=== PATIENT | female | born 1980 | race Caucasian/White ===

== ENCOUNTER → 2017-03-17 | Outpatient (CLI) | payer OTHER ==
--- NOTE | ~2017-03-17 | MR32 ---
[facility] A Service of [facility] & [facility] RADIOLOGY TEXT RESULTS PATIENT: EMRE LEUNG LOCATION: [facility] : [birth year] UNIT #: [id number] AGE: [address]: ANGELICA SUMMERS APRN SEX: F ORDER DR: [id number] [place] [id number] O MR#: [id number] Acc #: [id number] NAME: EMRE LEUNG : 1980 SEX: F STUDY DATE/TIME: 03/17/2017 11:34 UNIT: [facility] ROOM: STUDY DESCRIPTION: MR Cervical Wo Contrast Attending Physician: Angelica Summers Aprn Referring Physician: Angelica Summers Aprn Ordering Physician: Angelica Summers Aprn Primary Care Physician: Kelli Weeks A.P.R.N. MRI CENTER REPORT This report is preliminary unless electronic signature is present. EXAM MRI cervical spine, without contrast, 03/17/2017. HISTORY Bilateral hand numbness, chronic daily headaches, migraines for 2 years, migraines progressively worse, decreased range of motion. COMMENTS MRI of the cervical spine performed without contrast using routine 1.5-T wide-bore imaging technique. There are no comparisons. There is mild reversal of cervical lordosis. Bone marrow signal intensity is normal. Cervical intervertebral discs are mildly desiccated in general. The cervical cord is normal in size and signal intensity, and there is no Chiari-I malformation. At C2-C3, mild facet degenerative change bilaterally. No canal or foraminal impingement. At C3-C4, mild posterior disc bulge. Mild effacement of the anterior cord. Mild facet degenerative change on the left and foraminal narrowing. Cord is still surrounded by CSF. At C4-C5, mild left-sided facet degenerative change. There is a posterior small disc protrusion centrally with flattening of the cord anteriorly, but the cord is still surrounded by CSF posteriorly. No foraminal impingement. At C5-C6, mild left-sided facet degenerative change, mild left-sided foraminal narrowing. Mild effacement of the anterior cord. No canal stenosis. [facility] A Service of [facility] & [facility] RADIOLOGY TEXT RESULTS PATIENT: EMRE LEUNG LOCATION: [facility] : 82 UNIT #: [id number] AGE: [address]: ANGELICA SUMMERS APRN SEX: F ORDER DR: At C6-C7, there is minor concentric disc bulge. Mild effacement of the anterior cord. Mild left foraminal narrowing. No significant canal stenosis. Mild facet degenerative change. C7-T1, no significant abnormality. IMPRESSION There is mild reversal of cervical lordosis and because of this, the cord is draped over the posterior aspect of the intervertebral discs at multiple levels, but there is no cervical canal stenosis. Please refer to the [id number] description of findings. Dictated by... Anny Boss M.D. THIS IS AN ELECTRONICALLY VERIFIED REPORT Anny Boss M.D. at 03/19/2017 8:20 AM BERNARDO/nazia TD: 03/18/2017 19:15 JOB #: [id number] MRI CENTER REPORT Page 1 of 1
--- NOTE | ~2017-03-17 | MR18 ---
[facility] A Service [facility] RADIOLOGY TEXT RESULTS PATIENT: EMRE LEUNG LOCATION: [facility] : 82 UNIT #: [id number] AGE: [address]: ANGELICA SUMEMRS APRN SEX: F ORDER DR: [id number] [place] [id number] O MR#: [id number] Acc #: [id number] NAME: EMRE LEUNG : 1980 SEX: F STUDY DATE/TIME: 03/17/2017 10:58 UNIT: [facility] ROOM: STUDY DESCRIPTION: MR Brain Wo Contrast Attending Physician: Angelica Summers Aprn Referring Physician: Angelica Summers Aprn Ordering Physician: Angelica Summers Aprn Primary Care Physician: Kelli Weeks A.P.R.N. MRI CENTER REPORT This report is preliminary unless electronic signature is present. EXAM MRI of the brain without HISTORY Bilateral hand numbness, chronic daily headaches, migraines for 2 years, migraines becoming progressively worse. COMMENTS MRI of the brain was performed without contrast using routine 1.5T imaging technique. Wide bore system utilized. COMPARISON 10/28/2015 FINDINGS There is no evidence for a recent ischemic insult on the diffusion series. There is no Chiari-I malformation. There is no MRI evidence for intracranial hemorrhage. The major intracranial flow voids are maintained. There is no extraaxial fluid collection. No intracranial mass effect. The mcallister-white junction is age appropriate. IMPRESSION Essentially normal noncontrast brain MRI for age group. Dictated by... Anny Boss M.D. THIS IS AN ELECTRONICALLY VERIFIED REPORT Anny Boss M.D. at 03/18/2017 6:13 PM SAC/to TD: 03/18/2017 17:01 [facility] A Service [facility] RADIOLOGY TEXT RESULTS PATIENT: EMRE LEUNG LOCATION: [facility] : 82 UNIT #: [id number] AGE: [address]: ANGELICA SUMMERS APRN SEX: F ORDER DR: JOB #: [id number] MRI CENTER REPORT Page 1 of 1
== END | disposition home or self-care (01) ==
LOC: SMRI 10:36
DX: G43.909 Migraine, unspecified, not intractable, without status migrainosus (principal); M54.2 Cervicalgia; R20.0 Anesthesia of skin; R51 Headache; M40.50 Lordosis, unspecified, site unspecified
CPT/HCPCS: 70551; 72141